=== PATIENT | male | born 1990 | race American Indian/Alaskan Native ===

== ENCOUNTER 2017-05-12 15:28 | Emergency (ER) | payer SELFPAY ==
[2017-05-12] MEDS ORDERED: TYLENOL PO ONE (15:38)
[2017-05-12 16:13] LABS: Bilirubin,Urine NEG (Negative); Blood,Urine NEG (Negative); Ketones,Urine NEG (Negative); Leukocyte Esterase,Urine LG (Negative); Mucus,Urine 3+ /HPF; Nitrite,Urine NEG (Negative)
[2017-05-12 16:40] LABS: WBC,Urine > 182.0 /HPF (0.0-6.0)
--- NOTE | 2017-05-12 19:28 | Emergency Department Report ---
ED Male HPI - General Chief complaint: Extremity Injury, Lower Stated complaint: UNABLE TO MOVE LT LEG Time Seen by Provider: 05/12/17 19:09 Source: patient Mode of arrival: Ambulatory Limitations: No Limitations - History of Present Illness Initial comments: 26-year-old male past medical history none presents with complaint of 2-3 days of penile discharge and some dysuria. Patient also densely states that he has been experiencing pain in his left thigh region for the last week. Denies any direct trauma no recent falls no specific action that strained his leg as per patient. Denies any fevers chills nausea vomiting or abdominal pain. Denies any flank pain. Patient is awake alert and oriented 3 and nontoxic appearing. MD Complaint: dysuria Onset/Timin -: week(s) Location: penis Severity: moderate Severity scale (0 -10): 6 Quality: aching Consistency: intermittent Improves with: none Worsens with: none - Related Data Previous Rx's Medication Instructions Recorded Last Taken Type Cyclobenzaprine HCl [Flexeril 5 MG 5 mg PO TID PRN #12 tab 05/12/17 Unknown Rx TAB] Naproxen [Naprosyn TAB] 500 mg PO BID PRN #20 tablet 05/12/17 Unknown Rx Allergies Allergy/AdvReac Type Severity Reaction Status Date / Time No Known Allergies Allergy Unverified 05/12/17 15:34 ED Review of Systems ROS: Stated complaint: UNABLE TO MOVE LT LEG Other details as noted in HPI Constitutional: denies: chills, fever Eyes: denies: eye pain, eye discharge, vision change ENT: denies: ear pain, throat pain Respiratory: denies: cough, shortness of breath, wheezing Cardiovascular: denies: chest pain, palpitations Endocrine: no symptoms reported Gastrointestinal: denies: abdominal pain, nausea, diarrhea Genitourinary: denies: urgency, dysuria Musculoskeletal: as per HPI. denies: back pain, joint swelling, arthralgia Skin: denies: rash, lesions Neurological: denies: headache, weakness, paresthesias Psychiatric: denies: anxiety, depression Hematological/Lymphatic: denies: easy bleeding, easy bruising ED Past Medical Hx - Past Medical History Previous Medical History?: No - Surgical History Past Surgical History?: Yes Additional Surgical History: Right foot surgery - Social History Smoking Status: Never Smoker Substance Use Type: Alcohol - Medications Home Medications: Home Medications Medication Instructions Recorded Confirmed Last Taken Type Cyclobenzaprine HCl [Flexeril 5 MG 5 mg PO TID PRN #12 tab 05/12/17 Unknown Rx TAB] Naproxen [Naprosyn TAB] 500 mg PO BID PRN #20 tablet 05/12/17 Unknown Rx ED Physical Exam - General Limitations: No Limitations General appearance: alert, in no apparent distress - Head Head exam: Present: atraumatic, normocephalic - Eye Eye exam: Present: normal appearance, PERRL, EOMI - ENT ENT exam: Present: mucous membranes moist - Neck Neck exam: Present: normal inspection, full ROM - Respiratory Respiratory exam: Present: normal lung sounds bilaterally. Absent: respiratory distress - Cardiovascular Cardiovascular Exam: Present: regular rate, normal rhythm. Absent: systolic murmur, diastolic murmur, rubs, gallop - GI/Abdominal GI/Abdominal exam: Present: soft, normal bowel sounds - Rectal Rectal exam: Present: deferred - Extremities Exam Extremities exam: Present: normal inspection - Back Exam Back exam: Present: normal inspection - Neurological Exam Neurological exam: Present: alert, oriented X3, CN II-XII intact, abnormal gait (antalgic gait, patient limping due to pain in his left leg.) - Psychiatric Psychiatric exam: Present: normal affect, normal mood - Skin Skin exam: Present: warm, dry, intact, normal color. Absent: rash ED Course Vital Signs 05/12/17 05/12/17 15:34 15:42 Temperature 99.9 F H Pulse Rate 111 H Respiratory 18 18 Rate Blood Pressure 139/87 O2 Sat by Pulse 99 Oximetry ED Medical Decision Making - Lab Data Result diagrams: 05/12/17 19:47 05/12/17 19:47 - Medical Decision Making A/P: Urethritis, leg pain 1-patient empirically treated for chlamydia and gonorrhea. Patient has yellow copious discharge from urethra. 2-naproxen when necessary for pain 3-patient reports no direct trauma 4-give patient order for left lower extremity duplex. Well Score 1 points Low risk group for DVT. Unlikely according to [facility] DVT studies. Critical care attestation.: If time is entered above; I have spent that time in minutes in the direct care of this critically ill patient, excluding procedure time. ED Disposition Clinical Impression: Urethritis Leg pain Qualifiers: Laterality: left Qualified Code(s): M79.605 - Pain in left leg Disposition: TO HOME OR SELFCARE Is pt being admited?: No Does the pt Need Aspirin: No Condition: Stable Instructions: Nonspecific Urethritis in Men (ED), Musculoskeletal Pain (ED) Prescriptions: Cyclobenzaprine HCl [Flexeril 5 MG TAB] 5 mg PO TID PRN #12 tab PRN Reason: Muscle Spasm Naproxen [Naprosyn TAB] 500 mg PO BID PRN #20 tablet PRN Reason: Pain Referrals: MARTIN VELASQUEZ MD [Staff Physician] - 3-5 Days [facility] [Provider Group] - 3-5 Days [facility] [Outside] - 3-5 Days Forms: STI Treatment and Prevention, Work/School Release Form(ED) Time of Disposition: 20:51
[2017-05-12] MEDS ORDERED: ROCEPHIN IM ONE (19:29)
[2017-05-12] MEDS ORDERED: XYLOCAINE 1% MPF 5 mL INFILTRATI ONE (19:29)
[2017-05-12] MEDS ORDERED: TYLENOL #3 PO ONE (19:29)
[2017-05-12] MEDS ORDERED: ZITHROMAX PO ONE (19:29)
[2017-05-12 20:05] LABS: Hematocrit 36.8 % (35.5-45.6); Hemoglobin 12.5 gm/dl (11.8-15.2); Mean Corpuscular HGB Conc 34 % (32-34); Mean Corpuscular Hemoglobin 29 pg (28-32); Mean Corpuscular Volume 85 fl (84-94); Platelet Count 210 K/mm3 (140-440); Red Blood Count 4.33 M/mm3 (3.65-5.03); Red Cell Distribution Width 13.6 % (13.2-15.2); White Blood Count 5.9 K/mm3 (4.5-11.0)
[2017-05-12 20:28] LABS: Anion Gap 15 mmol/L; Blood Urea Nitrogen 9 mg/dL (9-20); Calcium 8.7 mg/dL (8.4-10.2); Carbon Dioxide 29 mmol/L (22-30); Chloride 95.3 mmol/L (98-107); Creatine Kinase 106 units/L (55-170); Glucose 79 mg/dL (75-100); Potassium 4.2 mmol/L (3.6-5.0); Sodium 135 mmol/L (137-145)
[2017-05-12 20:43] LABS: Basophils % (Manual) 0 % (0.0-1.8); Blastocytes % (Manual) 0 %; Eosinophils % (Manual) 0 % (0.0-4.3)
[2017-05-12 20:44] LABS: Diff Status Complete; RBC Morphology Normal
[2017-05-12 21:29] VITALS: BP 130/79
== END 2017-05-12 21:29 | disposition home or self-care (01) ==
LOC: ED 15:28
DX: N34.2 Other urethritis (principal); M79.605 Pain in left leg
CPT/HCPCS: 36415; 80048; 81001; 82140; 82550; 85007; 85025; 87086; 87591; 96372; 99283; J0696

== ENCOUNTER 2017-10-01 20:22 | Emergency (ER) | payer SELFPAY ==
[2017-10-01 23:06] VITALS: BP 127/76
== END 2017-10-02 03:10 | disposition left against medical advice (07) ==
LOC: ED 20:22
DX: R36.9 Urethral discharge, unspecified (principal); Z53.21 Procedure and treatment not carried out due to patient leaving prior to being seen by health care provider

== ENCOUNTER 2017-10-02 17:49 | Emergency (ER) | payer SELFPAY ==
[2017-10-02 20:06] LABS: Bilirubin,Urine NEG (Negative); Blood,Urine NEG (Negative); Color,Urine Yellow (Yellow); Nitrite,Urine NEG (Negative); WBC,Urine > 182.0 /HPF (0.0-6.0)
--- NOTE | 2017-10-02 21:40 | Emergency Department Report ---
ED Male HPI - General Chief complaint: Urogenital-Male Stated complaint: PENILE DISCHARGE Time Seen by Provider: 10/02/17 21:39 Source: patient Mode of arrival: Ambulatory Limitations: No Limitations - History of Present Illness Initial comments: Patient reported that he has yellowish penile discharge 6 days. He has reports these have a urinary burn in an frequency. Denies any nausea or vomiting. No significant fever or chills. He said it pain is burning in when he urinates is 5 out of 10. Better when not urinating. No [id number] medication taken. Denies any abdominal or back pain. Unknown if partner has discharged. MD Complaint: penile discharge, dysuria Onset/Timin -: days(s) Radiation: none Severity: moderate (penile burning with urinating) Severity scale (0 -10): 5 Quality: burning Worsens with: urination new sexual partner discharge, dysuria. denies: swelling, mass, rash, urinary retention, blood in urine, fever, nausea/vomiting, incontinence - Related Data Sexually active: Yes Previous Rx's Medication Instructions Recorded Last Taken Type Cyclobenzaprine HCl [Flexeril 5 MG 5 mg PO TID PRN #12 tab 05/12/17 Unknown Rx TAB] Naproxen [Naprosyn TAB] 500 mg PO BID PRN #20 tablet 05/12/17 Unknown Rx Ciprofloxacin HCl [Cipro] 500 mg PO Q12H 10 Days #20 tablet 10/02/17 Unknown Rx Allergies Allergy/AdvReac Type Severity Reaction Status Date / Time No Known Allergies Allergy Verified 10/01/17 23:03 ED Review of Systems ROS: Stated complaint: PENILE DISCHARGE Other details as noted in HPI Comment: All other systems reviewed and negative Constitutional: no symptoms reported ENT: denies: throat pain, congestion Respiratory: no symptoms reported Cardiovascular: denies: chest pain, palpitations, dyspnea on exertion, edema, syncope, paroxysmal nocturnal dyspnea Gastrointestinal: denies: abdominal pain, nausea, vomiting, diarrhea, constipation, hematemesis, melena, hematochezia Genitourinary: dysuria, frequency, discharge. denies: urgency, hematuria, testicular pain, testicular mass Musculoskeletal: denies: back pain, arthralgia, myalgia Skin: denies: rash Neurological: denies: headache, numbness, paresthesias, confusion, abnormal gait , vertigo ED Past Medical Hx - Past Medical History Previous Medical History?: No - Surgical History Past Surgical History?: Yes Additional Surgical History: Right foot surgery - Family History Family history: no significant - Social History Smoking Status: Never Smoker Substance Use Type: None - Medications Home Medications: Home Medications Medication Instructions Recorded Confirmed Last Taken Type Cyclobenzaprine HCl [Flexeril 5 MG 5 mg PO TID PRN #12 tab 05/12/17 Unknown Rx TAB] Naproxen [Naprosyn TAB] 500 mg PO BID PRN #20 tablet 05/12/17 Unknown Rx Ciprofloxacin HCl [Cipro] 500 mg PO Q12H 10 Days #20 tablet 10/02/17 Unknown Rx ED Physical Exam - General Limitations: No Limitations General appearance: alert, in no apparent distress - Head Head exam: Present: atraumatic, normocephalic, normal inspection - Eye Eye exam: Present: normal appearance, PERRL, EOMI Pupils: Present: normal accommodation - ENT ENT exam: Present: normal exam, normal orophraynx, mucous membranes moist - Neck Neck exam: Present: normal inspection, full ROM, other (no C-spine tenderness). Absent: tenderness, meningismus, lymphadenopathy, thyromegaly - Respiratory Respiratory exam: Present: normal lung sounds bilaterally. Absent: respiratory distress, chest wall tenderness, accessory muscle use - Cardiovascular Cardiovascular Exam: Present: regular rate, normal rhythm, normal heart sounds. Absent: systolic murmur, diastolic murmur - GI/Abdominal GI/Abdominal exam: Present: soft, normal bowel sounds. Absent: distended, tenderness, guarding, rebound, rigid, organomegaly, mass, bruit, pulsatile mass , hernia - Extremities Exam Extremities exam: Present: normal inspection, full ROM, normal capillary refill , other (no clubbing, cyanosis or edema. Positive pulses all extremities. No neurovascular compromise.). Absent: tenderness, pedal edema, joint swelling, calf tenderness - Back Exam Back exam: Present: normal inspection, full ROM, other. Absent: tenderness, CVA tenderness (R), CVA tenderness (L), muscle spasm, paraspinal tenderness, vertebral tenderness, rash noted - Neurological Exam Neurological exam: Present: alert, oriented X3, normal gait, reflexes normal. Absent: motor sensory deficit - Psychiatric Psychiatric exam: Present: normal affect, normal mood - Skin Skin exam: Present: warm, dry, intact, normal color. Absent: rash ED Course Vital Signs 10/02/17 19:36 Temperature 98.5 F Pulse Rate 76 Respiratory 16 Rate Blood Pressure 127/75 O2 Sat by Pulse 99 Oximetry - Reevaluation(s) Reevaluation #1: 10/02/17 22:36 I discussed the patient has urine results which is positive for urinary tract infection and also he chose to be treated for STD for penile discharge. Patient given Rocephin 1 g IM to cover UTI and gonorrhea, Zithromax 1 g by mouth to cover chlamydia and Flagyl 2 g by mouth to cover Trichomonas. ED Medical Decision Making - Lab Data Lab Results 10/02/17 Range/Units 19:45 Urine Color Yellow (Yellow) Urine Turbidity Cloudy (Clear) Urine pH 7.0 (5.0-7.0) Ur Specific [place] 1.023 (1.003-1.030) Urine Protein 100 mg/dl (Negative) mg/dL Urine Glucose (UA) Neg (Negative) mg/dL Urine Ketones Neg (Negative) mg/dL Urine Blood Neg (Negative) Urine Nitrite Neg (Negative) Urine Bilirubin Neg (Negative) Urine Urobilinogen 4.0 (<2.0) mg/dL Ur Leukocyte Esterase Lg (Negative) Urine WBC (Auto) > 182.0 H (0.0-6.0) /HPF Urine RBC (Auto) 33.0 (0.0-6.0) /HPF Gonorrhea and chlamydia pending - Medical Decision Making ED course: She presented emergency room with 6 days of urinary burning and frequency and also yellow penile discharge. Urinalysis positive for urinary tract infection with increase in white blood cells greater than 182, positive leukocyte Estrace and he has positive bacteria with positive protein. I discussed with patient his urinalysis results and also we discussed emperically treatment for STD or waited until culture results are back. Patient chose to be treated for STD emergency room. Patient was given Zithromax 1 g by mouth, Flagyl 2 g by mouth and Rocephin 1 g IM to cover UTI and gonorrhea. I discussed the patient that he needs to follow-up with department in 7-10 days for repeat STD testing. I also discussed with him that I am going to place him on antibiotic to cover urinary tract infection but if his culture comes back that he needs another antibiotic. We will call and let them know. I also discussed the patient that I will refer him to [facility] to see discharge instruction paperwork for details. Patient was on August discharge instruction and treatment plan discharge home with prescription for ciprofloxacin. Discussion with patient on safe sex and refrain from drinking all call over the next 5 days as well as medication given for Trichomonas K have negative reaction will call. I also instructed him that he should refrain him having sex with next 2 weeks. Critical care attestation.: If time is entered above; I have spent that time in minutes in the direct care of this critically ill patient, excluding procedure time. ED Disposition Clinical Impression: Concern about STD in male without diagnosis, Acute cystitis without hematuria, Penile discharge Disposition: - TO HOME OR SELFCARE Is pt being admited?: No Does the pt Need Aspirin: No Condition: Stable Instructions: Urinary Tract Infection in Men (ED), Dysuria (ED), Safe Sex (ED) , Sexually Transmitted Diseases (ED) Additional Instructions: Please practice safe sex Follow-up with [facility] to have repeat STD test then in 7-10 days You were treated in emergency room for gonorrhea, Trichomonas and Chlamydia. You have a urinary tract infection and will be treated with ofloxacin which is free at [facility]. Please do not have any sexual activity for the next 2 weeks. Please increase her fluid intake Follow-up with primary care physician at [facility] and 3-5 days Prescriptions: Ciprofloxacin HCl [Cipro] 500 mg PO Q12H 10 Days #20 tablet Referrals: [facility] [Outside] - 3-5 Days [facility] [Outside] - 7-10 days Forms: Work/School Release Form(ED)
[2017-10-02] MEDS ORDERED: ROCEPHIN IM STA (22:31)
[2017-10-02] MEDS ORDERED: XYLOCAINE 1% MPF 5 mL INFILTRATI ONE (22:31)
[2017-10-02] MEDS ORDERED: ZITHROMAX PO ONE (22:31)
[2017-10-02] MEDS ORDERED: FLAGYL PO ONE (22:33)
[2017-10-03 01:43] VITALS: BP 111/78
== END 2017-10-03 01:41 | disposition home or self-care (01) ==
LOC: ED 17:49
DX: N30.00 Acute cystitis without hematuria (principal)
CPT/HCPCS: 81001; 87086; 87591; 96372; 99283; J0696

== ENCOUNTER 2021-10-10 00:18 | Emergency (ER) | payer SELFPAY ==
[2021-10-10] MEDS ORDERED: AZITHROMYCIN 250 MG TAB PO ONE (01:22)
[2021-10-10] MEDS ORDERED: LIDOCAINE-MPF (1%) 10 MG/1 ML VIAL 5 ML INFILTRATI ONE (01:22)
--- NOTE | 2021-10-10 01:48 | Emergency Department Report ---
ED Male HPI - General Chief complaint: Urogenital-Male Stated complaint: UTI Time Seen by Provider: 10/10/21 01:17 Source: patient Mode of arrival: Ambulatory Limitations: No Limitations - History of Present Illness Initial comments: Patient 31-year-old male who presents for positive gonorrhea contact. States penile discharge yellow-green dysuria frequency urgency. There are no open sores lesions or cankers. There is no fevers no chills no nausea no vomiting no abdominal pain. Is HIV positive. Patient has good ID follow-up and is adherent to medication regimen. MD Complaint: penile discharge - Related Data Previous Rx's Medication Instructions Recorded Last Taken Type Cyclobenzaprine HCl [Flexeril 5 MG 5 mg PO TID PRN #12 tab 05/12/17 Unknown Rx TAB] Naproxen [Naprosyn TAB] 500 mg PO BID PRN #20 tablet 05/12/17 Unknown Rx Ciprofloxacin HCl [Cipro] 500 mg PO Q12H 10 Days #20 tablet 10/02/17 Unknown Rx Doxycycline Hyclate [Doxycycline 100 mg PO BID 7 Days #14 tab 10/10/21 Unknown Rx Hyclate TAB] Allergies Allergy/AdvReac Type Severity Reaction Status Date / Time No Known Allergies Allergy Verified 10/01/17 23:03 ED Review of Systems ROS: Stated complaint: UTI Other details as noted in HPI Constitutional: denies: chills, fever Eyes: denies: eye pain, eye discharge, vision change ENT: denies: ear pain, throat pain Respiratory: denies: cough, shortness of breath, wheezing Cardiovascular: denies: chest pain, palpitations Endocrine: no symptoms reported Gastrointestinal: denies: abdominal pain, nausea, diarrhea Genitourinary: urgency, dysuria, frequency, discharge. denies: hematuria, testicular pain, testicular mass Musculoskeletal: denies: back pain, joint swelling, arthralgia Skin: denies: rash, lesions Neurological: denies: headache, weakness, paresthesias Psychiatric: denies: anxiety, depression Hematological/Lymphatic: denies: easy bleeding, easy bruising ED Past Medical Hx - Surgical History Past Surgical History?: Yes Additional Surgical History: Right foot surgery - Social History Smoking Status: Never Smoker Substance Use Type: None - Medications Home Medications: Home Medications Medication Instructions Recorded Confirmed Last Taken Type Cyclobenzaprine HCl [Flexeril 5 MG 5 mg PO TID PRN #12 tab 05/12/17 Unknown Rx TAB] Naproxen [Naprosyn TAB] 500 mg PO BID PRN #20 tablet 05/12/17 Unknown Rx Ciprofloxacin HCl [Cipro] 500 mg PO Q12H 10 Days #20 tablet 10/02/17 Unknown Rx Doxycycline Hyclate [Doxycycline 100 mg PO BID 7 Days #14 tab 10/10/21 Unknown Rx Hyclate TAB] ED Physical Exam - General Limitations: No Limitations General appearance: alert, in no apparent distress - Head Head exam: Present: atraumatic, normocephalic - Eye Eye exam: Present: normal appearance, EOMI Pupils: Present: normal accommodation - ENT ENT exam: Present: mucous membranes moist - Neck Neck exam: Present: normal inspection - Respiratory Respiratory exam: Present: normal lung sounds bilaterally. Absent: respiratory distress - Cardiovascular Cardiovascular Exam: Present: regular rate, normal rhythm. Absent: systolic murmur, diastolic murmur, rubs, gallop - GI/Abdominal GI/Abdominal exam: Present: soft, normal bowel sounds. Absent: distended, tenderness, guarding, rebound, rigid, bruit, hernia - Rectal Rectal exam: Present: deferred - exam: Present: other (deferred per patient ) - Extremities Exam Extremities exam: Present: normal inspection - Back Exam Back exam: Present: normal inspection, full ROM. Absent: tenderness, CVA ten derness (R), CVA tenderness (L) - Neurological Exam Neurological exam: Present: alert, oriented X3 - Psychiatric Psychiatric exam: Present: normal affect, normal mood - Skin Skin exam: Present: warm, dry, intact, normal color. Absent: rash ED Course Vital Signs 10/10/21 00:36 Temperature 98.4 F Pulse Rate 71 Respiratory 18 Rate Blood Pressure 108/68 O2 Sat by Pulse 100 Oximetry ED Medical Decision Making - Medical Decision Making There is straightforward symptoms STD. Patient treated for same. Patient be DC'd to home with prescriptions. Patient will follow-up with primary care doctor in 2 to 3 days. Patient will return to ED should symptoms worsen. Patient DC'd home in stable condition at this time. Critical care attestation.: If time is entered above; I have spent that time in minutes in the direct care of this critically ill patient, excluding procedure time. ED Disposition Clinical Impression: STI (sexually transmitted infection) Disposition: HOME / SELF CARE / HOMELESS Is pt being admited?: No Does the pt Need Aspirin: No Condition: Stable Instructions: Gonorrhea Additional Instructions: Take medications as prescribed, follow-up with your doctor in 2 to 3 days. Prescriptions: Doxycycline Hyclate [Doxycycline Hyclate TAB] 100 mg PO BID 7 Days #14 tab Referrals: BALTAZAR BLAND MD [Staff Physician] - 3-5 Days Forms: Work/School Release Form(ED) Time of Disposition: 01:49
[2021-10-10 02:15] VITALS: BP 128/67
== END 2021-10-10 02:13 | disposition home or self-care (01) ==
LOC: ED 00:18
DX: A64 Unspecified sexually transmitted disease (principal)
CPT/HCPCS: 96372; 99282; J0696; J3490

== ENCOUNTER 2021-10-19 21:24 | Emergency (ER) | payer SELFPAY ==
[2021-10-19 22:26] VITALS: BP 147/70
[2021-10-19] MEDS ORDERED: KETOROLAC 30 MG/1 ML INJ IM ONE (22:48)
[2021-10-19] MEDS ORDERED: dexAMETHasone 20 MG/5 ML VIAL IM ONE (22:48)
[2021-10-19] MEDS ORDERED: diazePAM 5 MG TAB PO ONE (22:48)
--- NOTE | 2021-10-19 22:56 | Emergency Department Report ---
ED Back Pain/Injury HPI - General Chief Complaint: Back Pain/Injury Stated Complaint: LOW BACK PAIN/DIZZINESS Source: patient Limitations: No Limitations - History of Present Illness Initial Comments: Patient is a 31-year-old -[place] male with no past medical history presented to the ED with complaint of acute onset persistent low back pain for the last 1 week. Patient states that the pain occasionally radiates to the bilateral hips and groin. Patient states that the pain is especially worse with movement. Patient denies dizziness, syncope, nausea and vomiting, chest pain, shortness of breath, change in vision, cough, sore throat, dysuria, urinary frequency and urgency, testicular pain, hematuria, fever, chills, numbness and tingling or weakness of lower extremities bilaterally. MD Complaint: back pain (LOWER) -: Sudden, week(s) (1) Similar Symptoms Previously: No Place: home Radiation: groin Severity: severe Severity scale (0 -10): 8 Quality: sharp, aching Consistency: constant Improves With: none Worsens With: movement, sitting upright, walking Context: turning/twisting, bending Associated Symptoms: denies other symptoms. denies: confusion, weakness, chest pain, numbness, difficulty walking, cough, difficulty urinating, diaphoresis, incontinence, fever/chills, constipation, headaches, abdominal pain, loss of appetite, malaise, nausea/vomiting, rash, seizure, shortness of breath, syncope Treatments Prior to Arrival: acetaminophen - Related Data Previous Rx's Medication Instructions Recorded Last Taken Type Cyclobenzaprine HCl [Flexeril 5 MG 5 mg PO TID PRN #12 tab 05/12/17 Unknown Rx TAB] Naproxen [Naprosyn TAB] 500 mg PO BID PRN #20 tablet 05/12/17 Unknown Rx Ciprofloxacin HCl [Cipro] 500 mg PO Q12H 10 Days #20 tablet 10/02/17 Unknown Rx Doxycycline Hyclate [Doxycycline 100 mg PO BID 7 Days #14 tab 10/10/21 Unknown Rx Hyclate TAB] Ibuprofen [Motrin] 800 mg PO Q8HR PRN #30 tablet 10/19/21 Unknown Rx methocarbamoL [Methocarbamol] 750 mg PO Q12H PRN #24 tab 10/19/21 Unknown Rx predniSONE [Deltasone] 40 mg PO QDAY #10 tab 10/19/21 Unknown Rx traMADoL [Ultram] 50 mg PO Q6HR PRN #10 tablet 10/19/21 Unknown Rx Allergies Allergy/AdvReac Type Severity Reaction Status Date / Time No Known Allergies Allergy Verified 10/01/17 23:03 ED Review of Systems ROS: Stated complaint: LOW BACK PAIN/DIZZINESS Other details as noted in HPI Constitutional: denies: chills, fever Eyes: denies: eye pain, eye discharge, vision change ENT: denies: ear pain, throat pain Respiratory: denies: cough, shortness of breath, wheezing Cardiovascular: denies: chest pain, palpitations Endocrine: no symptoms reported Gastrointestinal: denies: abdominal pain, nausea, diarrhea Genitourinary: denies: urgency, dysuria Musculoskeletal: back pain (lower), arthralgia (bilateral hip pain). denies: joint swelling Skin: denies: rash, lesions Neurological: denies: headache, weakness, paresthesias Psychiatric: denies: anxiety, depression Hematological/Lymphatic: denies: easy bleeding, easy bruising ED Past Medical Hx - Past Medical History Previous Medical History?: No - Surgical History Past Surgical History?: Yes Additional Surgical History: Right foot surgery - Social History Smoking Status: Never Smoker Substance Use Type: None - Medications Home Medications: Home Medications Medication Instructions Recorded Confirmed Last Taken Type Cyclobenzaprine HCl [Flexeril 5 MG 5 mg PO TID PRN #12 tab 05/12/17 Unknown Rx TAB] Naproxen [Naprosyn TAB] 500 mg PO BID PRN #20 tablet 05/12/17 Unknown Rx Ciprofloxacin HCl [Cipro] 500 mg PO Q12H 10 Days #20 tablet 10/02/17 Unknown Rx Doxycycline Hyclate [Doxycycline 100 mg PO BID 7 Days #14 tab 10/10/21 Unknown Rx Hyclate TAB] Ibuprofen [Motrin] 800 mg PO Q8HR PRN #30 tablet 10/19/21 Unknown Rx methocarbamoL [Methocarbamol] 750 mg PO Q12H PRN #24 tab 10/19/21 Unknown Rx predniSONE [Deltasone] 40 mg PO QDAY #10 tab 10/19/21 Unknown Rx traMADoL [Ultram] 50 mg PO Q6HR PRN #10 tablet 10/19/21 Unknown Rx ED Physical Exam - General Limitations: No Limitations General appearance: alert, in no apparent distress - Head Head exam: Present: atraumatic, normocephalic, normal inspection - Eye Eye exam: Present: normal appearance, PERRL, EOMI Pupils: Present: normal accommodation - ENT ENT exam: Present: normal exam, normal orophraynx, mucous membranes moist, TM's normal bilaterally, normal external ear exam - Neck Neck exam: Present: normal inspection, full ROM. Absent: tenderness - Respiratory Respiratory exam: Present: normal lung sounds bilaterally. Absent: respiratory distress, wheezes, rales, rhonchi, stridor, chest wall tenderness, accessory muscle use, decreased breath sounds, prolonged expiratory - Cardiovascular Cardiovascular Exam: Present: regular rate, normal rhythm, normal heart sounds. Absent: systolic murmur, diastolic murmur, rubs, gallop - GI/Abdominal GI/Abdominal exam: Present: soft, normal bowel sounds. Absent: distended, tenderness, guarding, rebound, hyperactive bowel sounds, hypoactive bowel sounds, organomegaly - Extremities Exam Extremities exam: Present: normal inspection, full ROM, normal capillary refill. Absent: tenderness, pedal edema, joint swelling, calf tenderness - Back Exam Back exam: Present: normal inspection, full ROM, tenderness (Palpable lumbosacral paraspinal musculoskeletal tenderness), muscle spasm, paraspinal tenderness. Absent: CVA tenderness (R), CVA tenderness (L), vertebral tenderness - Neurological Exam Neurological exam: Present: alert, oriented X3, CN II-XII intact, normal gait, reflexes normal - Psychiatric Psychiatric exam: Present: normal affect, normal mood - Skin Skin exam: Present: warm, dry, intact, normal color. Absent: rash ED Course Vital Signs 10/19/21 22:17 Temperature 98.3 F Pulse Rate 75 Respiratory 18 Rate Blood Pressure 147/70 O2 Sat by Pulse 99 Oximetry ED Medical Decision Making - Medical Decision Making This is a 31-year-old -[place] male with no past medical history presented to the ED with complaint of acute onset persistent low back pain for the last 1 week. Patient states that the pain occasionally radiates to the bilateral hips and groin. Patient states that the pain is especially worse with movement. In the ED, patient is alert and oriented x3 and is not in any distress. Patient is hemodynamically stable. Patient was treated for pain in the ED and discharged home on pain medications and muscle relaxants. Patient symptoms are likely musculoskeletal or sciatica based on the presentation and physical exam findings. Patient was advised to return to the ED immediately if symptoms get worse, otherwise follow-up with his primary care physician in 7 to 10 days for reevaluation. - Differential Diagnosis Sciatica; muscle spasm; muscle strain; Critical care attestation.: If time is entered above; I have spent that time in minutes in the direct care of this critically ill patient, excluding procedure time. ED Disposition Clinical Impression: Spasm of muscle of lower back, Strain of muscle, fascia and tendon of lower back, initial encounter Acute low back pain with bilateral sciatica Qualifiers: Back pain laterality: bilateral Qualified Code(s): M54.42 - Lumbago with sciatica, left side; M54.41 - Lumbago with sciatica, right side Disposition: HOME / SELF CARE / HOMELESS Is pt being admited?: No Does the pt Need Aspirin: No Condition: Stable Instructions: Muscle Cramps and Spasms, [id number], Muscle Strain, [id number], Sciatica, [id number], Lumbosacral Strain Additional Instructions: Take medication with food, drink plenty of fluids and follow-up with your primary care physician in 5 to 7 days for reevaluation. Return to the ED immediately if symptoms get worse. Prescriptions: predniSONE [Deltasone] 40 mg PO QDAY #10 tab methocarbamoL [Methocarbamol] 750 mg PO Q12H PRN #24 tab PRN Reason: Muscle Spasm Ibuprofen [Motrin] 800 mg PO Q8HR PRN #30 tablet PRN Reason: Pain , Severe (7-10) traMADoL [Ultram] 50 mg PO Q6HR PRN #10 tablet PRN Reason: Pain Referrals: [facility] [Provider Group] - 7-10 days Time of Disposition: 22:56 Print Language: GERMAN
== END 2021-10-19 23:54 | disposition home or self-care (01) ==
LOC: ED 21:24
DX: S39.012A Strain of muscle, fascia and tendon of lower back, initial encounter (principal); M62.830 Muscle spasm of back; M54.42 Lumbago with sciatica, left side; M54.41 Lumbago with sciatica, right side; Z98.890 Other specified postprocedural states; X58.XXXA Exposure to other specified factors, initial encounter; Y93.89 Activity, other specified; Y92.89 Other specified places as the place of occurrence of the external cause; Y99.8 Other external cause status
CPT/HCPCS: 96372; 99282; J1100; J1885